=== PATIENT | male | born 1955 | race Caucasian/White ===

== ENCOUNTER 2021-08-11 18:37 | Emergency (ER) | payer MEDICARE, SELFPAY ==
--- NOTE | ~2021-08-11 | CT_ITS ---
EXAMINATION: CT brain wo con DATE: 08/11/2021 20:04 INDICATION: bilateral blurred vision for 2 weeks TECHNIQUE: Computed tomography (CT) of the head was performed without intravenous contrast. The mA wa s adjusted according to patient size. Iterative reconstruction technique was employed. The dose-lengt h product was 605.33 mGy-cm. COMPARISON: None FINDINGS: No acute intracranial hemorrhage or extra-axial fluid collection. No hydrocephalus, mass, or herniation. No acute ischemic infarct. Unremarkable dural venous sinus attenuation. No acute osseous abnormality. The aerated spaces are clear. Old bilateral thalamic lacunar infarcts. Mild chronic white matter change. Atherosclerotic intracrani al calcifications. IMPRESSION: No acute intracranial process. Reviewed, dictated and finalized at location [facility].
[2021-08-11 18:41] VITALS: BP 193/91; PULSE 85; RESP 16; TEMP 36.2; O2SAT 99
--- NOTE | 2021-08-11 19:15 | ED.GENADULT ---
HPI - General Adult General Chief complaint: Headache Stated complaint: visual changes/headache. 2 days Time Seen by Provider: 08/11/21 18:51 Source: patient and family Mode of arrival: ambulatory Limitations: no limitations History of Present Illness HPI narrative: 65-year-old male presented to the emergency department for increasing blurred vision over 2 weeks. Patient states over the last 2 weeks that he has had bilateral blurred vision that is affecting his distance reading. Patient denies any vision loss. Patient denies any black spots in his vision. Patient denies any ocular pain. Patient states he did have a brief headache today for approximately an hour but denies any current headache. Patient denies any significant past medical history. Patient states he does have history of high blood pressure but has not had follow-up with his primary care physician and extended time and has been off of his medications. Related Data Allergies Allergy/AdvReac Type Severity Reaction Status Date / Time No Known Allergies Allergy Mild Verified 08/11/21 18:43 Review of Systems Review of Systems: CONSTITUTIONAL: Denies fever, chills, or sweats. EYES: Blurred vision with no visual field deficit ENT: Denies rhinorrhea, congestion, sore throat, or otalgia. CARDIOVASCULAR: Denies chest pain, palpitations, or edema. RESPIRATORY: Denies cough or dyspnea. GASTROINTESTINAL: Denies abdominal pain, nausea, vomiting, or diarrhea. GENITOURINARY: Denies dysuria or hematuria. SKIN: Denies rash or itching. MUSCULOSKELETAL: Denies back pain, joint pain, or myalgia. NEUROLOGIC: Had headache for 1 hour, denies numbness, or weakness. PMFSH Family History Family History (Updated 08/01/16 @ 23:56 by DOCTOR UNKNOWN) Sibling Patient's sister is in good health Patient's brother is in good health Family history of alcoholism Father Family history of alcoholism Family history of renal failure, Onset Age: 67 Patient's father is Mother Family history of malignant melanoma Social History Social History Alcohol intake: current Exam Narrative: APPEARANCE: Well appearing, no pain, no distress, well-nourished. HEAD: normocephalic, atraumatic. EYES: Normal pupil exam. Normal fundus exam, blood vessels well visualized. No active bleeding. No visual field deficit. No double vision. NOSE: Normal no drainage THROAT: Pharynx clear, no exudate. NECK: Supple. No adenopathy, no masses. RESPIRATORY: Airway patent, respirations nonlabored. Clear to auscultation bilaterally, no rales, rhonchi, wheezing. CARDIOVASCULAR: Regular rate and rhythm without murmurs rubs or gallops. ABDOMINAL: Soft, nontender, nondistended, normal bowel sounds MUSCULOSKELETAL: Moves all extremities. Strength/ROM intact, No edema, No calf tenderness. NEURO: Alert. Cranial nerves II through XII intact. Grossly intact. SKIN: Warm, dry. Normal Color Course Course Emergency Course: Head CT was negative for acute intracranial abnormality. Patient had a normal neuro exam. Patient's visual acuity was decreased. Patient's blood pressure did improve. Patient and family were updated on the results of the work-up and importance of having close follow-up with the primary care physician to restart his blood pressure medications and also was recommended to have close follow-up with ophthalmology. Both patient and family were comfortable with the plan for discharge and close follow-up. Vital Signs Vital signs: Vital Signs Temperature 97.1 F L 08/11/21 18:41 Pulse Rate 85 08/11/21 18:41 Respiratory Rate 16 08/11/21 18:41 Blood Pressure 193/91 H 08/11/21 18:41 Pulse Oximetry 99 08/11/21 18:41 Temperature 97.1 F L 08/11/21 18:41 Pulse Rate 98 08/11/21 20:14 Respiratory Rate 19 08/11/21 20:14 Blood Pressure 165/97 H 08/11/21 20:14 Pulse Oximetry 97 08/11/21 20:14 Medical Decision Making Vital Signs Vital Signs: Vital Signs
[2021-08-11 19:48] LABS: Basophils Absolute Auto 0.1 K/mm3 (0.0-0.1); Basophils Percent Auto 0.6 % (0.2-1.2); Eosinophils Absolute Auto 0.1 K/mm3 (0-0.3); Eosinophils Percent Auto 0.9 % (0-4.4); Hematocrit 42.5 % (42.0-52.0); Immature Granulocyte Absolute 0.02 K/mm3 (0.00-0.031); Immature Granulocyte Percent A 0.3 % (0-0.5); Mean Corpuscular HGB Conc 32.9 g/dl (32-36); Mean Corpuscular Hemoglobin 32.3 pg (26-34); Mean Corpuscular Volume 98.2 fl (80-100); Mean Platelet Volume 8.6 fl (7.4-10.4); Monocytes Absolute Auto 0.6 K/mm3 (0.1-0.6); Monocytes Percent Auto 7.6 % (2.6-8.5); Neutrophils Absolute Auto 5.3 K/mm3 (1.3-6.7); Neutrophils Percent Auto 67.6 % (45.5-73.1); Platelet Count Result 290 k/mm3 (150-375); Red Blood Count 4.33 M/mm3 (4.6-6.20); White Blood Count 7.8 K/mm3 (4.5-10.0)
--- NOTE | 2021-08-11 19:49 | PC.NURSE ---
Report received from ALE Ortiz. Assumed care of patient at this time.
[2021-08-11 20:02] LABS: Alanine Aminotransferase 28 U/L (4-50); Albumin Level 4.8 g/dL (3.5-5.1); Alkaline Phosphatase 105 U/L (38-126); Anion Gap 12 mmol/L (8-16); Aspartate Amino Transferase 32 U/L (17-59); Bilirubin,Total 0.3 mg/dL (0.2-1.3); Blood Urea Nitrogen 28 mg/dL (9-20); Calcium 8.8 mg/dL (8.4-10.2); Carbon Dioxide 22 mmol/L (22-30); Chloride 101 mmol/L (98-107); Estimated CRCL calculation 51 ml/min; Estimated Glomerular Filt Rate > 60; Glucose 67 mg/dL (65-110); Potassium 3.8 mmol/L (3.4-5.0); Sodium 135 mmol/L (137-145)
[2021-08-11 20:14] VITALS: BP 165/97; PULSE 98; RESP 19; O2SAT 97
== END 2021-08-11 20:59 | disposition home or self-care (01) ==
PROVIDERS: Emergency Provider Emergency Medicine; PCP Family Medicine
DX: H53.8 Other visual disturbances (principal); I10 Essential (primary) hypertension
CPT/HCPCS: 36415; 70450; 80053; 85025; 99284

== ENCOUNTER 2022-11-18 02:59 | Emergency (ER) | payer OTHER, SELFPAY ==
[2022-11-18 03:00] VITALS: BP 172/88; PULSE 91; RESP 16; TEMP 36.5; O2SAT 100
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
[2022-11-18] MEDS: ACETAMINOPHEN 500 MG TABLET 1000 MG PO (04:13)
[2022-11-18] MEDS: LIDOCAINE 5% PATCH 1 PATCH TRANSDERM (04:13)
== END 2022-11-18 04:20 | disposition home or self-care (01) ==
PROVIDERS: Emergency Provider Preventive Medicine Aerospace Medicine; PCP Internal Medicine
DX: S16.1XXA Strain of muscle, fascia and tendon at neck level, initial encounter (principal); M62.830 Muscle spasm of back; F17.210 Nicotine dependence, cigarettes, uncomplicated; I10 Essential (primary) hypertension; X58.XXXA Exposure to other specified factors, initial encounter
CPT/HCPCS: 99283; A9270

== ENCOUNTER 2023-04-07 22:10 | Inpatient (IN) | payer OTHER, SELFPAY ==
--- NOTE | ~2023-04-07 | CT_ITS ---
Noncontrast CT scan of the cervical spine Technique: Multiple contiguous axial [address] images of the cervical spine were obtained and rec onstructed in 2D sagittal and coronal planes on the acquisition scanner. Dose reduction technique was used on this scan by utilizing automated exposure control, adjustment of the mA and/or kV according to patient size. The dose-length product (DLP) was 478.68 mGy-cm. Clinical History: Pain Findings: No fractures or dislocations. There is intervertebral disc prosthesis at the C6-7 disc spa ce. There is minimal degenerative disc narrowing at C5-C6. There are scattered mild facet joint degen erative changes in the cervical spine. Probable right neural foraminal narrowing at C6-C7. No prevert ebral soft tissue swelling. Impression: No fracture or subluxation of the cervical spine. Intervertebral disc prosthesis at C6-C7. Reviewed, dictated and finalized at [facility]. EN LABOURER Impression: No fracture or subluxation of the cervical spine. Intervertebral disc prosthesis at C6-C7.
--- NOTE | ~2023-04-07 | CT_ITS ---
Non-contrast Head CT History: Status post fall COMPARISON: 08/11/2021 Technique: Axial non-contrast imaging of the brain was performed. Dose reduction technique was used on this scan by utilizing automated exposure control and iterative reconstruction technique. The dose -length product (DLP) was 605.33 mGy-cm. Findings: There is no evidence of intracranial hemorrhage, mass lesion, or acute infarct. Chronic la cunar infarcts are noted in the bilateral basal ganglia and thalami.. The ventricles and subarachnoi d spaces are normal in size. The calvarium appears normal. The visualized paranasal sinuses and mas toid air cells are clear. Impression: No acute abnormality seen. Small chronic lacunar infarcts, as above. Reviewed, dictated and finalized at location . EN MAKING SUPERVISOR Impression: No acute abnormality seen. Small chronic lacunar infarcts, as above.
--- NOTE | ~2023-04-07 | CT_ITS ---
EXAMINATION: CT abdomen pelvis w con DATE: 04/07/2023 23:41 INDICATION: N/V, elevated lipase TECHNIQUE: Computed tomography (CT) of the abdomen and pelvis was performed with 100 mL Omnipaque-350 intravenous contrast. Automated exposure control and iterative reconstruction technique were employe d. The dose-length product was 282.87 mGy-cm. COMPARISON: None. FINDINGS: Lower thorax: Coronary artery calcifications. Minimal bibasilar atelectasis. Liver: Hepatomegaly. Diffuse fatty infiltration. Left liver lobe cyst/hemangioma. Biliary/Gallbladder: Gallbladder is normal. No bile duct dilation. Pancreas: Mild inflammatory stranding about the body and tail of the pancreas. No duct dilation. No m ass. No hyperdensity to suggest edema/necrosis. Spleen: Normal. Adrenals:No mass. Kidneys: No suspicious mass, obstructing stone, or hydronephrosis. GI tract: Small hiatal hernia. Moderate distal esophageal and gastric wall edema. 2.3 cm fat density mass in the proximal small bowel likely lipoma. Diffuse mild colonic wall edema with scattered areas of submucosal fat deposition. No small or large bowel dilation. Normal appendix. Mesentery/Peritoneum: No ascites, mass, or free air. Retroperitoneum: No mass. Atherosclerotic abdominal aortic and/or arterial calcifications. Pelvis: Asymmetric wall thickening of the anterior bladder.. Soft Tissues: Soft tissues and body wall unremarkable. Bones: No acute osseous finding. IMPRESSION: Moderate esophagitis/gastritis. Hepatomegaly with steatosis. Acute uncomplicated interstitial pancreatitis. Duodenal lipoma. Mild diffuse colitis, presumably inflammatory given the presence of submucosal fat, correlate for his tory of inflammatory bowel disease. Infectious or ischemic colitis could appear similarly. Asymmetric urinary bladder wall thickening, consider nonemergent referral for cystoscopy. Reviewed, dictated and finalized at location [facility]. ESS AND WELLNESS MANAGER IMPRESSION: Moderate esophagitis/gastritis. Hepatomegaly with steatosis. Acute uncomplicated interstitial pancreatitis. Duodenal lipoma. Mild diffuse colitis, presumably inflammatory given the presence of submucosal fat, correlate for history of inflammatory bowel disease. Infectious or ischemi c colitis could appear similarly. Asymmetric urinary bladder wall thickening, consider nonemergent referral for c ystoscopy.
[2023-04-07 22:12] VITALS: BP 168/102; PULSE 55; RESP 20; TEMP 37.4; O2SAT 98
[2023-04-07 22:34] VITALS: O2SAT 100
[2023-04-07 22:37] VITALS: BP 154/84; PULSE 92; RESP 17; O2SAT 100
[2023-04-07 22:43] LABS: Basophils Percent Auto 0.3 % (0.2-1.2); Eosinophils Percent Auto 0.3 % (0-4.4); Hemoglobin 13.9 g/dL (14.0-18.0); Immature Granulocyte Absolute 0.05 K/mm3 (0.00-0.031); Immature Granulocyte Percent A 0.6 % (0-0.5); Lymphocytes Absolute Auto 1.44 K/mm3 (0.9-3.2); Lymphocytes Percent Auto 16.7 % (18.3-44.2); Mean Corpuscular HGB Conc 33.9 g/dl (32-36); Mean Corpuscular Hemoglobin 34.5 pg (26-34); Mean Corpuscular Volume 101.7 fl (80-100); Mean Platelet Volume 10.8 fl (7.4-10.4); Monocytes Absolute Auto 0.8 K/mm3 (0.1-0.6); Monocytes Percent Auto 9.8 % (2.6-8.5); Neutrophils Absolute Auto 6.2 K/mm3 (1.3-6.7); Neutrophils Percent Auto 72.3 % (45.5-73.1); Platelet Count Result 182 k/mm3 (150-375); Red Blood Count 4.03 M/mm3 (4.6-6.20); Red Cell Distribution Width 14.7 % (11.5-14.5); White Blood Count 8.6 K/mm3 (4.5-10.0)
[2023-04-07 22:49] VITALS: BP 154/84; PULSE 88; RESP 20; O2SAT 100
[2023-04-07] MEDS: ONDANSETRON INJ 4 MG/2 ML VIAL IV PUSH (23:05)
[2023-04-07 23:06] LABS: Alanine Aminotransferase 75 U/L (6-50); Albumin Level 4.2 g/dL (3.5-5.1); Alkaline Phosphatase 126 U/L (38-126); Anion Gap 14 mmol/L (8-16); Aspartate Amino Transferase 72 U/L (17-59); Bilirubin,Total 1.4 mg/dL (0.2-1.3); Blood Urea Nitrogen 16 mg/dL (9-20); Calcium 9.4 mg/dL (8.4-10.2); Carbon Dioxide 23 mmol/L (22-30); Chloride 98 mmol/L (98-107); Estimated CRCL calculation 83 ml/min; Estimated Glomerular Filt Rate > 60; Glucose 117 mg/dL (65-110); Potassium 2.8 mmol/L (3.4-5.0); Sodium 135 mmol/L (137-145)
[2023-04-07] MEDS: SODIUM CHLORIDE 0.9% IV 1,000 ML 999 ML IV CONT ×2 (23:06→23:53)
[2023-04-07] MEDS: FAMOTIDINE 20 MG/2 ML VIAL IV PUSH (23:06)
[2023-04-07 23:12] LABS: Lipase 2759 U/L (23-300)
[2023-04-07 23:17] LABS: Creatine Kinase 75 U/L (55-170); Magnesium 1.9 mg/dL (1.6-2.3)
[2023-04-07 23:18] LABS: Influenza A QL RT-PCR Negative (Negative); Influenza B QL RT-PCR Negative (Negative); RSV RNA, RT-PCR Negative (Negative); SARS-CoV-2 RNA PCR Negative (Negative)
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
[2023-04-07 23:44] VITALS: PULSE 70; RESP 13; O2SAT 98
[2023-04-07] MEDS: POTASSIUM CHLORIDE INJ 40 MEQ in SODIUM CHLORIDE 0.9% IV 500 ML 130 MEQ IVPB (23:51)
[2023-04-07 23:53] LABS: Triglycerides 80 mg/dL (<150)
[2023-04-07 23:54] LABS: Ethanol < 10 mg/dL (<10)
[2023-04-08] VITALS (12 sets, daily range): BP systolic 135–153; BP diastolic 79–93; PULSE 57–116; RESP 11–24; TEMP 36.4–36.9; O2SAT 99–100; BMI 21.9
--- NOTE | 2023-04-08 00:01 | ECG_ITS ---
Measurements Intervals [place] Rate: 72 P: 58 IN: 150 QRS: 69 QRSD: 105 T: 51 QT: 411 QTc: 452 Interpretive Statements SINUS RHYTHM POSSIBLE INFERIOR MYOCARDIAL INFARCTION , PROBABLY OLD [30 ms Q WAVE IN II/aVF] ABNORMAL ECG NO PREVIOUS ECG AVAILABLE FOR COMPARISON Electronically Signed On 04-08-2023 10:38:41 MACHINE LAY OUT WORKER by Terrence Lindquist M.D.
--- NOTE | 2023-04-08 00:05 | PC.NURSE ---
Pt states my last drink was about 2 weeks ago . Pt admits to being a chronic drinker and usually having a couple cocktails a night .
[2023-04-08] MEDS: LORazepam INJ (*CRX) 2 MG/ML VIAL 0.5 MG IV PUSH (00:27)
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
[2023-04-08 00:53] LABS: Appearance Urine Clear (Clear); Bacteria Urine None Seen /hpf; Bilirubin Urine Negative (Negative); Blood Urine Negative (Negative); Color Urine Yellow (Yellow); Glucose Urine UA Negative (Negative); Ketones Urine 2+ mg/dL (Negative); Leukocyte Esterase Ur Negative LEU/UL (Negative); Nitrate Urine Negative (Negative); Non Pathogenic Casts 0-2; Protein Urine 1+ mg/dL (Negative); RBC Urine 0-2 /hpf (0-2); Squamous Epithelial Cell Urine None seen /hpf (Few); WBC Urine 0-5 /hpf
[2023-04-08 01:03] LABS: Add Urine Microscopic? YES
[2023-04-08 01:58] LABS: Glucose Point of Care 87 mg/dl (65-105)
[2023-04-08] MEDS: SODIUM CHLORIDE 0.9% IV 1,000 ML 100 ML IV CONT ×2 (02:12→13:20)
--- NOTE | 2023-04-08 02:49 | ADMGEN ---
This patient, Pretty Ballard, was admitted to Medical Room 347-. Patient/family oriented to hospital policies and general routines including ID bracelet, bed and alarms, visiting hours, pain management, procedures, bathroom and other care routines, personal items, smoking policy, room service/diet, and visiting hours. Information on how to activate the Rapid Response Team has been discussed. Patient/Family are encouraged to report perceived risks to care and to ask questions if they do not understand what they are told or what they should do.
[2023-04-08] MEDS: MORPHINE SULFATE (*CRX) 4 MG/ML INJ IV PUSH (03:33)
[2023-04-08] MEDS: LORazepam INJ (*CRX) 2 MG/ML VIAL 1 MG IV PUSH ×2 (03:34→20:17)
[2023-04-08 06:37] LABS: Basophils Percent Auto 0.3 % (0.2-1.2); Eosinophils Percent Auto 0.6 % (0-4.4); Hematocrit 33.4 % (42.0-52.0); Immature Granulocyte Absolute 0.05 K/mm3 (0.00-0.031); Immature Granulocyte Percent A 0.7 % (0-0.5); Lymphocytes Absolute Auto 1.35 K/mm3 (0.9-3.2); Lymphocytes Percent Auto 20.1 % (18.3-44.2); Mean Corpuscular HGB Conc 32.9 g/dl (32-36); Mean Corpuscular Hemoglobin 34.2 pg (26-34); Mean Corpuscular Volume 103.7 fl (80-100); Mean Platelet Volume 10.5 fl (7.4-10.4); Monocytes Absolute Auto 0.8 K/mm3 (0.1-0.6); Monocytes Percent Auto 12.1 % (2.6-8.5); Neutrophils Absolute Auto 4.4 K/mm3 (1.3-6.7); Neutrophils Percent Auto 66.2 % (45.5-73.1); Platelet Count Result 150 k/mm3 (150-375); Red Blood Count 3.22 M/mm3 (4.6-6.20); Red Cell Distribution Width 14.8 % (11.5-14.5); White Blood Count 6.7 K/mm3 (4.5-10.0)
[2023-04-08 06:48] LABS: Anion Gap 6 mmol/L (8-16); Blood Urea Nitrogen 13 mg/dL (9-20); Carbon Dioxide 24 mmol/L (22-30); Chloride 107 mmol/L (98-107); Estimated CRCL calculation 89 ml/min; Estimated Glomerular Filt Rate > 60; Glucose 85 mg/dL (65-110); Potassium 3.3 mmol/L (3.4-5.0); Sodium 137 mmol/L (137-145)
[2023-04-08 06:58] LABS: Glucose Point of Care 85 mg/dl (65-105)
[2023-04-08] MEDS: THIAMINE HCL 200 MG/2 ML VIAL 100 MG IV PUSH (09:53)
[2023-04-08] MEDS: FAMOTIDINE 20 MG/2 ML VIAL IV PUSH ×2 (09:53→20:17)
--- NOTE | 2023-04-08 11:16 | PM.IMPN ---
Progress Note: A&P Assessment and Plan (1) Acute pancreatitis: Code(s): K85.90 - Acute pancreatitis without necrosis or infection, unspecified Status: Acute Assessment and Plan: NPO, IV fluids, pain management 04/08: ADAT, trial CLD (2) Alcohol abuse: Code(s): F10.10 - Alcohol abuse, uncomplicated Status: Acute Assessment and Plan: Monitor CIWA, last score was 1 (3) Hypokalemia: Code(s): E87.6 - Hypokalemia Status: Acute Assessment and Plan: Replete and recheck (4) Dehydration: Code(s): E86.0 - Dehydration Status: Acute Assessment and Plan: Resolved (5) Acute gastritis: Code(s): K29.00 - Acute gastritis without bleeding Status: Acute Assessment and Plan: Continue Pepcid Plan DVT prophylaxis with SCDs GI prophylaxis with pepcid Code status full code Subjective Date/time seen: 04/08/23 11:16 Interval history: 67-year-old male with history of hypertension is presenting with weakness, nausea, vomiting and diarrhea is currently being treated for acute alcoholic pancreatitis as well as alcohol withdrawal. No overnight events noted. No chest pain or shortness of breath. No nausea, vomiting or diarrhea. No fevers or chills. Review of Systems Review of Systems: 12 point review of systems was assessed and was negative except as noted in the HPI Exam Narrative: General: No acute distress, alert and oriented per baseline HEENT: Atraumatic, normocephalic, mucous membranes moist CV: Regular rate and rhythm, S1, S2 Lungs: Clear to auscultation bilaterally, no rales or crackles noted, no wheezes, good air entry Abdomen: Soft, nontender, nondistended Extremities: Normal to inspection Skin: No rashes noted, no lesions or wounds seen Psych: Euthymic, normal affect Objective Data Vital Signs Vital Signs: Vital Signs - 24 hr 04/07/23 22:12 04/07/23 22:49 04/07/23 22:34 Temperature 99.3 F Pulse Rate 55 L 88 Pulse Rate [Monitor] Respiratory Rate 20 20 Blood Pressure 168/102 H 154/84 H Pulse Oximetry 98 100 100 Oxygen Delivery Room Air 04/07/23 22:37 04/07/23 23:44 04/08/23 01:01 Temperature Pulse Rate 92 70 77 Pulse Rate [Monitor] Respiratory Rate 17 13 12 Blood Pressure 154/84 H 144/93 H Pulse Oximetry 100 98 100 Oxygen Delivery 04/08/23 01:02 04/08/23 02:13 04/08/23 03:00 Temperature 98.4 F Pulse Rate 80 76 85 Pulse Rate [Monitor] Respiratory Rate 11 L 13 18 Blood Pressure 138/93 H 153/83 H Pulse Oximetry 100 100 99 Oxygen Delivery 04/08/23 03:31 04/08/23 04:00 04/08/23 08:00 Temperature Pulse Rate 116 H Pulse Rate [Monitor] 90 90 Respiratory Rate Blood Pressure 153/83 H Pulse Oximetry Oxygen Delivery 04/08/23 08:00 Temperature Pulse Rate Pulse Rate [Monitor] Respiratory Rate Blood Pressure Pulse Oximetry Oxygen Delivery Room Air Intake/Output Intake/Output: Intake & Output 04/05/23 04/06/23 04/07/23 04/08/23 23:59 23:59 23:59 23:59 Intake Total 2000 Output Total 525 Balance 1475 Meds/Results Medications: Active Medications Generic Name Dose Route Start Last Admin Trade Name Freq PRN Reason Stop Dose Admin Acetaminophen 650 mg 04/08/23 00:45 Acetaminophen 650 Mg Suppository RECTAL Q6H PRN Mild Pain (1-3) or Fever Dextrose 12.5 gm 04/08/23 00:45 Dextrose 50% 25 Gm/50 Ml Syringe IV PUSH PRN PRN Hypoglycemia Protocol Famotidine 20 mg 04/08/23 09:00 04/08/23 09:53 Famotidine 20 Mg/2 Ml Vial IV PUSH 20 mg Q12HR JS Administration Glucagon 1 mg 04/08/23 00:45 Glucagon For Inj 1 Mg Vial IM PRN PRN Hypoglycemia Protocol Glucose 15 gm 04/08/23 00:45 Glucose Oral Gel 15 Gm Of Glucse In 37.5 Gm Tube PO PRN PRN Hypoglycemia Protocol Sodium Chloride 1,000 mls @ 10
[2023-04-08 12:02] LABS: Glucose Point of Care 81 mg/dl (65-105)
[2023-04-08 17:13] LABS: Glucose Point of Care 75 mg/dl (65-105)
[2023-04-08 21:10] LABS: Glucose Point of Care 93 mg/dl (65-105)
[2023-04-09] VITALS (10 sets, daily range): BP systolic 132–172; BP diastolic 82–111; PULSE 56–82; RESP 16–20; TEMP 36.3–36.9; O2SAT 98–99
[2023-04-09] MEDS: SODIUM CHLORIDE 0.9% IV 1,000 ML 100 ML IV CONT ×2 (01:00→09:02)
[2023-04-09] MEDS: LORazepam INJ (*CRX) 2 MG/ML VIAL 1 MG IV PUSH (04:16)
[2023-04-09] MEDS: MORPHINE SULFATE (*CRX) 4 MG/ML INJ IV PUSH ×2 (05:28→09:01)
[2023-04-09 05:55] LABS: Basophils Percent Auto 0.6 % (0.2-1.2); Eosinophils Absolute Auto 0.1 K/mm3 (0-0.3); Eosinophils Percent Auto 1.1 % (0-4.4); Hematocrit 35.3 % (42.0-52.0); Hemoglobin 11.8 g/dL (14.0-18.0); Immature Granulocyte Absolute 0.06 K/mm3 (0.00-0.031); Lymphocytes Absolute Auto 1.19 K/mm3 (0.9-3.2); Lymphocytes Percent Auto 18.9 % (18.3-44.2); Mean Corpuscular HGB Conc 33.4 g/dl (32-36); Mean Corpuscular Hemoglobin 34.4 pg (26-34); Mean Corpuscular Volume 102.9 fl (80-100); Mean Platelet Volume 10.1 fl (7.4-10.4); Monocytes Absolute Auto 0.9 K/mm3 (0.1-0.6); Monocytes Percent Auto 13.7 % (2.6-8.5); Neutrophils Absolute Auto 4.1 K/mm3 (1.3-6.7); Neutrophils Percent Auto 64.7 % (45.5-73.1); Platelet Count Result 198 k/mm3 (150-375); Red Blood Count 3.43 M/mm3 (4.6-6.20); Red Cell Distribution Width 14.3 % (11.5-14.5); White Blood Count 6.3 K/mm3 (4.5-10.0)
[2023-04-09 06:26] LABS: Alanine Aminotransferase 50 U/L (6-50); Albumin Level 3.2 g/dL (3.5-5.1); Alkaline Phosphatase 101 U/L (38-126); Anion Gap 7 mmol/L (8-16); Aspartate Amino Transferase 48 U/L (17-59); Bilirubin,Total 1.2 mg/dL (0.2-1.3); Blood Urea Nitrogen 10 mg/dL (9-20); Calcium 8.1 mg/dL (8.4-10.2); Carbon Dioxide 21 mmol/L (22-30); Chloride 106 mmol/L (98-107); Estimated CRCL calculation 103 ml/min; Estimated Glomerular Filt Rate > 60; Glucose 85 mg/dL (65-110); Lipase 1036 U/L (23-300); Potassium 2.8 mmol/L (3.4-5.0); Sodium 134 mmol/L (137-145)
[2023-04-09 06:56] LABS: Glucose Point of Care 77 mg/dl (65-105)
[2023-04-09] MEDS: FAMOTIDINE 20 MG/2 ML VIAL IV PUSH ×2 (08:57→20:12)
[2023-04-09] MEDS: THIAMINE HCL 200 MG/2 ML VIAL 100 MG IV PUSH (08:57)
[2023-04-09] MEDS: chlordiazePOXIDE (*CRX) 10 MG CAPSULE PO ×4 (09:02→23:37)
[2023-04-09] MEDS: KCL 20 MEQ/SW 100 ML 100 ML 50 MEQ IVPB (09:02)
--- NOTE | 2023-04-09 09:49 | PM.IMPN ---
Progress Note: A&P Assessment and Plan (1) Acute pancreatitis: Code(s): K85.90 - Acute pancreatitis without necrosis or infection, unspecified Status: Acute Assessment and Plan: 04/09/23: tolerating clears,can advance to a full liquid diet today and may advance to a cardiac diet as tolerated continue with IV hydration denies any nausea, vomiting, diarrhea, and abdominal pain (2) Alcohol abuse: Code(s): F10.10 - Alcohol abuse, uncomplicated Status: Acute Assessment and Plan: 04/09/2023: continue to monitor for alcohol withdrawal [facility] protocol in place tremors noted on examination today ,bilateral hand (3) Hypokalemia: Code(s): E87.6 - Hypokalemia Status: Acute Assessment and Plan: 04/09/2023: potassium 2.8 today replace with 60 mEq of potassium today changed IV fluids to normal saline and 40 of KCl continue to trend labs patient denies any nausea, vomiting, diarrhea In last 24 hours magnesium checked and was 1.8 (4) Dehydration: Code(s): E86.0 - Dehydration Status: Acute Assessment and Plan: see above (5) Acute gastritis: Code(s): K29.00 - Acute gastritis without bleeding Status: Acute Assessment and Plan: 04/09/2023: continue Pepcid see above plan of care Time Spent With Patient Time with patient: 25 - 35 minutes Subjective Date/time seen: 04/09/23 09:49 Interval history: This is a 67 year old male who presented to the hospital with complaints of weakness, nausea, vomiting, diarrhea that began about 3 days prior to admission. Workup in the hospital included a CT of the abdomen and pelvis which revealed moderate esophagitis /gastritis, hepatomegaly with steatosis, acute uncomplicated interstitial pancreatitis, mild diffuse colitis presumably inflammatory given the presence of submucosal fat. He was found to have a sodium level of 135, potassium was 2.8 on admission. He was admitted for dehydration. On examination today patient is alert and oriented x3, lying in the bed. Labs today reveal WBC 6.3, Hgb 11.8, Hct 35.3, na+ 134, K+ 2.8, Bicarb 21, BUN 10, Creatinine 0.60, liver enzymes normal, Lipase now down to 1036, Magnesium 1.8. Ordered 60meq of KCL now. change IV fluids to normal saline and 40 of KCL to start now. Patient had a fall with injury this morning after bathing. Patient slid of bed and hit the back of his head on the floor. He does have a laceration to the back of the head which is scabbed.Head CT today shown chronic lacunar infarcts, otherwise no acute abnormality was seen. CT of cervical spine no fracture or subluxation of the cervical spine, intervertebral disc prosthesis at C6-C7.Patient denies any headache, PERRLA, and he is not confused. Review of Systems Review of Systems: 12 point review of systems was assessed and was negative except as noted in the HPI All systems reviewed & are unremarkable except as noted in HPI and below Constitutional: Constitutional: Reports as per HPI and Reports no additional constitutional complaints Eyes: Eyes: Reports as per HPI and Reports no additional eye complaints ENT: Reports system reviewed and no additional complaints, except as documented and Reports as per HPI Cardiovascular: Cardiovascular: Reports as per HPI and Reports no additional cardiovascular complaints Respiratory: Respiratory: Reports as per HPI and Reports no additional respiratory complaints Gastrointestinal: Gastrointestinal: Reports as per HPI and Reports no additional gastrointestinal complaints Genitourinary: Genitourinary: Reports no additional male genitourinary complaints and Reports as per HPI Musculoskeletal: Musculoskeletal: Reports no additional musculoskeletal complaints and Reports as per HPI Integumentary/Breasts: Skin/Breast: Reports system reviewed and no additional complaints, except as docu and Reports as per HPI Krystal
[2023-04-09 10:21] LABS: Magnesium 1.8 mg/dL (1.6-2.3)
[2023-04-09 12:24] LABS: Glucose Point of Care 88 mg/dl (65-105)
[2023-04-09] MEDS: POTASSIUM CHLORIDE 20 MEQ ER TABLET PO (12:47)
[2023-04-09] MEDS: POTASSIUM CHLORIDE 20 MEQ ER TABLET 40 MEQ PO (12:47)
[2023-04-09] MEDS: KCL 40 MEQ/0.9% SOD CHL 1,000 ML 100 ML IV CONT (17:11)
[2023-04-09 17:21] LABS: Glucose Point of Care 80 mg/dl (65-105)
[2023-04-10] VITALS (7 sets, daily range): BP systolic 130–175; BP diastolic 81–98; PULSE 66–93; RESP 16–21; TEMP 36.4–36.7; O2SAT 99–100
[2023-04-10] MEDS: KCL 40 MEQ/0.9% SOD CHL 1,000 ML 100 ML IV CONT (03:11)
[2023-04-10] MEDS: chlordiazePOXIDE (*CRX) 10 MG CAPSULE PO ×4 (05:31→23:59)
[2023-04-10 05:54] LABS: Basophils Percent Auto 0.6 % (0.2-1.2); Eosinophils Absolute Auto 0.1 K/mm3 (0-0.3); Eosinophils Percent Auto 1.1 % (0-4.4); Hematocrit 37.9 % (42.0-52.0); Hemoglobin 12.6 g/dL (14.0-18.0); Immature Granulocyte Absolute 0.06 K/mm3 (0.00-0.031); Immature Granulocyte Percent A 0.9 % (0-0.5); Lymphocytes Absolute Auto 1.09 K/mm3 (0.9-3.2); Lymphocytes Percent Auto 16.7 % (18.3-44.2); Mean Corpuscular HGB Conc 33.2 g/dl (32-36); Mean Corpuscular Hemoglobin 34.6 pg (26-34); Mean Corpuscular Volume 104.1 fl (80-100); Mean Platelet Volume 9.9 fl (7.4-10.4); Monocytes Percent Auto 15.7 % (2.6-8.5); Neutrophils Absolute Auto 4.2 K/mm3 (1.3-6.7); Platelet Count Result 310 k/mm3 (150-375); Red Blood Count 3.64 M/mm3 (4.6-6.20); Red Cell Distribution Width 14.2 % (11.5-14.5); White Blood Count 6.5 K/mm3 (4.5-10.0)
[2023-04-10 06:19] LABS: Alanine Aminotransferase 48 U/L (6-50); Albumin Level 3.3 g/dL (3.5-5.1); Alkaline Phosphatase 100 U/L (38-126); Anion Gap 8 mmol/L (8-16); Aspartate Amino Transferase 46 U/L (17-59); Bilirubin,Total 1.1 mg/dL (0.2-1.3); Blood Urea Nitrogen 5 mg/dL (9-20); Calcium 8.2 mg/dL (8.4-10.2); Carbon Dioxide 22 mmol/L (22-30); Chloride 108 mmol/L (98-107); Estimated CRCL calculation 103 ml/min; Estimated Glomerular Filt Rate > 60; Glucose 93 mg/dL (65-110); Potassium 3.4 mmol/L (3.4-5.0); Sodium 138 mmol/L (137-145)
[2023-04-10] MEDS: MORPHINE SULFATE (*CRX) 4 MG/ML INJ IV PUSH ×2 (07:51→23:19)
[2023-04-10 07:59] LABS: Glucose Point of Care 97 mg/dl (65-105)
[2023-04-10] MEDS: THIAMINE HCL 200 MG/2 ML VIAL 100 MG IV PUSH (08:12)
[2023-04-10] MEDS: FAMOTIDINE 20 MG/2 ML VIAL IV PUSH ×2 (08:12→20:11)
[2023-04-10 09:16] LABS: Lipase 505 U/L (23-300)
[2023-04-10] MEDS: POTASSIUM CHLORIDE 20 MEQ ER TABLET PO ×2 (10:39→17:40)
[2023-04-10] MEDS: amLODIPine BESYLATE 2.5 MG TABLET PO (10:39)
--- NOTE | 2023-04-10 13:35 | PM.IMPN ---
Progress Note: A&P Assessment and Plan (1) Acute pancreatitis: Code(s): K85.90 - Acute pancreatitis without necrosis or infection, unspecified Status: Acute Assessment and Plan: 04/09/23: tolerating clears,can advance to a full liquid diet today and may advance to a cardiac diet as tolerated continue with IV hydration denies any nausea, vomiting, diarrhea, and abdominal pain 04/10/2023: IV fluids discontinued Potassium is 3.4 this morning, we will go ahead and start 20 mEq of potassium p.o. b.i.d. We will recheck labs in the morning, as long as his labs are stable we will go ahead and proceed with discharge. (2) Hypokalemia: Code(s): E87.6 - Hypokalemia Status: Acute Assessment and Plan: 04/09/2023: potassium 2.8 today replace with 60 mEq of potassium today changed IV fluids to normal saline and 40 of KCl continue to trend labs patient denies any nausea, vomiting, diarrhea In last 24 hours magnesium checked and was 1.8 04/10/2023: Potassium 3.4 today, no replacement needed IV fluids discontinued today Patient started on 20 mEq of potassium b.i.d. Continue to trend lab (3) Acute gastritis: Code(s): K29.00 - Acute gastritis without bleeding Status: Acute Assessment and Plan: 04/09/2023: continue Pepcid see above plan of care 04/10/2023: No change to current treatment plan Time Spent With Patient Time with patient: 25 - 35 minutes Subjective Date/time seen: 04/10/23 13:35 Interval history: 04/09/23: This is a 67 year old male who presented to the hospital with complaints of weakness, nausea, vomiting, diarrhea that began about 3 days prior to admission. Workup in the hospital included a CT of the abdomen and pelvis which revealed moderate esophagitis /gastritis, hepatomegaly with steatosis, acute uncomplicated interstitial pancreatitis, mild diffuse colitis presumably inflammatory given the presence of submucosal fat. He was found to have a sodium level of 135, potassium was 2.8 on admission. He was admitted for dehydration. On examination today patient is alert and oriented x3, lying in the bed. Labs today reveal WBC 6.3, Hgb 11.8, Hct 35.3, na+ 134, K+ 2.8, Bicarb 21, BUN 10, Creatinine 0.60, liver enzymes normal, Lipase now down to 1036, Magnesium 1.8. Ordered 60meq of KCL now. change IV fluids to normal saline and 40 of KCL to start now. Patient had a fall with injury this morning after bathing. Patient slid of bed and hit the back of his head on the floor. He does have a laceration to the back of the head which is scabbed.Head CT today shown chronic lacunar infarcts, otherwise no acute abnormality was seen. CT of cervical spine no fracture or subluxation of the cervical spine, intervertebral disc prosthesis at C6-C7.Patient denies any headache, PERRLA, and he is not confused. 04/10/23: Patient today patient is alert oriented x3, lying in the bed. He denies any nausea, vomiting, diarrhea, abdominal pain, chest pain, shortness a breath, fever, chills. He is reporting that his neck is hurting. He does have Tylenol ordered as needed. Labs today revealed white blood cell count of 6.5, hemoglobin 12.6, hematocrit 37.9, sodium 138, potassium 3.4, chloride 108, bicarb 22, BUN 5, creatinine 0.6, blood sugar ranging the to 97, liver enzymes are normal, lipase is 505 this morning. Potassium chloride 20 mEq p.o. b.i.d. ordered now that his potassium is low normal. We will check another lab in the morning. As long as his potassium stays stable we can think about discharge. Review of Systems Review of Systems: 12 point review of systems was assessed and was negative except as noted in the HPI All systems reviewed & are unremarkable except as noted in HPI and below Constitutional: Constitutional: Reports as per HPI and Reports no additional constitutional complaints Eyes: Eyes: Reports as per HPI and Reports no addit
--- NOTE | 2023-04-10 14:14 | PC.NURSE ---
[employer] spoke with QI Sosa while she was ounding on patient. Verbal order to DC telemetry was given.
--- NOTE | 2023-04-10 14:15 | PCOTNOTE ---
Attempted to see Patient this P.M. due to Patient having PT evaluation this A.M. Patient was in bed and declined performing more therapy this date. Patient verbalized he already did therapy for the day, he is resting/sleeping, try back tomorrow .
[2023-04-10] MEDS: ACETAMINOPHEN 325 MG TABLET 650 MG PO (18:52)
[2023-04-11] MEDS: ACETAMINOPHEN 325 MG TABLET 650 MG PO ×2 (01:48→08:16)
[2023-04-11] MEDS: chlordiazePOXIDE (*CRX) 10 MG CAPSULE PO (05:41)
[2023-04-11 05:48] LABS: Basophils Percent Auto 0.9 % (0.2-1.2); Eosinophils Absolute Auto 0.1 K/mm3 (0-0.3); Eosinophils Percent Auto 1.5 % (0-4.4); Hematocrit 34.8 % (42.0-52.0); Hemoglobin 11.5 g/dL (14.0-18.0); Immature Granulocyte Absolute 0.03 K/mm3 (0.00-0.031); Immature Granulocyte Percent A 0.6 % (0-0.5); Lymphocytes Absolute Auto 1.13 K/mm3 (0.9-3.2); Lymphocytes Percent Auto 24.3 % (18.3-44.2); Mean Platelet Volume 9.5 fl (7.4-10.4); Monocytes Absolute Auto 0.9 K/mm3 (0.1-0.6); Monocytes Percent Auto 19.1 % (2.6-8.5); Neutrophils Absolute Auto 2.5 K/mm3 (1.3-6.7); Neutrophils Percent Auto 53.6 % (45.5-73.1); Platelet Count Result 334 k/mm3 (150-375); Red Blood Count 3.38 M/mm3 (4.6-6.20); Red Cell Distribution Width 13.9 % (11.5-14.5); White Blood Count 4.7 K/mm3 (4.5-10.0)
[2023-04-11 06:00] VITALS: BP 136/78; PULSE 67; RESP 21; TEMP 36.7; O2SAT 100
[2023-04-11 06:01] LABS: Alanine Aminotransferase 38 U/L (6-50); Albumin Level 2.9 g/dL (3.5-5.1); Alkaline Phosphatase 99 U/L (38-126); Anion Gap 3 mmol/L (8-16); Aspartate Amino Transferase 34 U/L (17-59); Bilirubin,Total 0.8 mg/dL (0.2-1.3); Blood Urea Nitrogen 8 mg/dL (9-20); Calcium 8.4 mg/dL (8.4-10.2); Carbon Dioxide 25 mmol/L (22-30); Chloride 109 mmol/L (98-107); Estimated CRCL calculation 79 ml/min; Estimated Glomerular Filt Rate > 60; Glucose 125 mg/dL (65-110); Lipase 342 U/L (23-300); Potassium 3.2 mmol/L (3.4-5.0); Sodium 137 mmol/L (137-145)
[2023-04-11] MEDS: THIAMINE HCL 200 MG/2 ML VIAL 100 MG IV PUSH (08:16)
[2023-04-11] MEDS: POTASSIUM CHLORIDE 20 MEQ ER TABLET PO (08:16)
[2023-04-11] MEDS: FAMOTIDINE 20 MG/2 ML VIAL IV PUSH (08:16)
[2023-04-11] MEDS: amLODIPine BESYLATE 2.5 MG TABLET PO (08:21)
--- NOTE | 2023-04-11 09:44 | PM.DS ---
DS: Admitting Diagnosis Discharge Date 04/11/23 Admitting Diagnosis Acute pancreatitis Alcohol abuse Hypokalemia Dehydration Acute gastritis DS: Discharge Diagnosis Discharge Diagnosis (1) Acute pancreatitis: Code(s): K85.90 - Acute pancreatitis without necrosis or infection, unspecified Status: Acute (2) Hypokalemia: Code(s): E87.6 - Hypokalemia Status: Acute (3) Acute gastritis: Code(s): K29.00 - Acute gastritis without bleeding Status: Acute DS: Summary Hospital Course Reason for hospitalization: Acute pancreatitis without necrosis or infection Hypokalemia Dehydration Hospital Course: This is a 67 year old male who presented to the hospital with complaints of weakness, nausea, vomiting, diarrhea that began about 3 days prior to admission.? Workup in the hospital included a CT of the abdomen and pelvis which revealed moderate esophagitis /gastritis, hepatomegaly with steatosis, acute uncomplicated interstitial pancreatitis, mild diffuse colitis presumably inflammatory given the presence of submucosal fat.? He was found to have a sodium level of 135, potassium was 2.8 on admission. Patient had a fall with injury on after bathing. Patient slid of bed and hit the back of his head on the floor. He does have a laceration to the back of the head which is scabbed. Head CT today shown chronic lacunar infarcts, otherwise no acute abnormality was seen. CT of cervical spine no fracture or subluxation of the cervical spine, intervertebral disc prosthesis at C6-C7.Patient denies any headache, PERRLA, and he was not confused. On examination today patient is alert oriented x3, lying in the bed. His vital signs are stable, he is on room air, he is afebrile. He denies any fever, chills, nausea, vomiting, diarrhea, abdominal pain, shortness a breath, or chest pain. Labs today revealed a white blood cell count of 4.7, hemoglobin 11.5, hematocrit 34.8, sodium level is 137, potassium 3.2, chloride 109, BUN 8, creatinine 0.8, blood sugars ranging 93-125, liver enzymes are normal, lipase level down to 342 today. Patient was given an extra dose of potassium 40 mEq along with his 20 of potassium b.i.d. that was ordered yesterday. Patient is stable for discharge today. He was prescribed potassium 20 mEq p.o. b.i.d. and he will also need to get another BMP here in 1 week to check his potassium level and follow up with his primary for continued care. Status at Discharge Cognitive/behavioral status at discharge: Alert oriented x3 Functional status at discharge: independent ambulation Overall status at discharge: patient is progressing back to baseline Time Spent with Patient Time attestation: Total time spent providing and/or coordinating discharge services: Time spent: Greater than 30 minutes Exam Narrative: General: In no acute distress, well nourished Head: atraumatic, no encephalopathy Eyes: EOMI, PERRLA, sclera clear ENT: moist mucous membranes, nasal passages clear Neck: supple, no JVD, no adenopathy, trachea midline Cardiac: Normal S1 and S2. No murmur, gallops or friction rubs, peripheral pulses intact. Respiratory: Lungs clear to auscultation, no adventitious lung sounds, currently on room air Gastrointestinal: soft, non-distended, non-tender, normoactive bowel sounds. : voiding without difficulty. Extremities: moves all extremities well, no edema, good ROM Skin: Laceration to the back up his head which is scabbed open to air, Neuro: Alert and oriented x4, cranial nerves intact, no neuro deficits. Psych: normal mood, normal affect, interactive DS: Data Data Completed and Pending Completed studies during hospitalization: Abdomen pelvis CT Head CT Cervical spine CT Pending studies at discharge: None Labs on day of discharge: Labs from last 24 hours 04/11/23 05:36 WBC 4.7 RBC 3.38 L Hgb 11.5 L Hct 34.8 L MCV 103.0 H MCH 34.0 MCHC 33.0 RDW 13.9 Plt Count 334 MPV
[2023-04-11] MEDS: POTASSIUM CHLORIDE 20 MEQ ER TABLET 40 MEQ PO (11:42)
== END 2023-04-11 13:51 | disposition home or self-care (01) | DRG 439 ==
LOC: ANHED 04-08 00:52 → ANH3MED 04-08 01:56
PROVIDERS: Student in an Organized Health Care Education/Training Program; Admitting Provider Student in an Organized Health Care Education/Training Program; Emergency Provider Physician Assistant; PCP Nurse Practitioner; Visit Provider Nurse Practitioner Acute Care
DX: K85.20 Alcohol induced acute pancreatitis without necrosis or infection (principal); F10.139 Alcohol abuse with withdrawal, unspecified; K29.00 Acute gastritis without bleeding; G25.2 Other specified forms of tremor; E87.6 Hypokalemia; E86.0 Dehydration; Z20.822 Contact with and (suspected) exposure to COVID-19; I10 Essential (primary) hypertension; F17.210 Nicotine dependence, cigarettes, uncomplicated; S01.81XA Laceration without foreign body of other part of head, initial encounter; W06.XXXA Fall from bed, initial encounter
CPT/HCPCS: 36415; 70450; 72125; 74177; 80048; 80053; 80307; 81001; 82550; 82948; 83690; 83735; 84478; 85025; 87637; 93005; 96374; 96375; 96376; 97161; 97165; 99285; A9270; G0378; J2060; J2270; J2405; J3411; J3480; J7030; J7040; Q9967